=== PATIENT | male | born 2000 ===

== ENCOUNTER → 2021-10-26 | Outpatient (CLI) | payer OTHER ==
--- NOTE | 2021-10-26 14:39 | Diagnostic Imaging Report ---
INDICATION: Right hand injury. FINDINGS: Three views of the right hand show no fracture, dislocation or other acute abnormalities. IMPRESSION: No acute abnormality seen in the right hand. Dictated by: Dictated on workstation # [id number]
== END ==
LOC: RAD 13:42
PROVIDERS: ATTEND Nurse Practitioner Primary Care
DX: S69.91XA Unspecified injury of right wrist, hand and finger(s), initial encounter (principal); X58.XXXA Exposure to other specified factors, initial encounter
CPT/HCPCS: 73130